=== PATIENT | female | born 1985 | race Caucasian/White ===

== ENCOUNTER → 2017-04-14 | Outpatient (CLI) | payer MEDICAID ==
[~2017-04-14] MED LIST: GADOBUTROL 10 ML VIAL IVP ONE
== END ==
LOC: FIMAGING 09:56
PROVIDERS: ATTEND Internal Medicine Endocrinology, Diabetes & Metabolism
DX: D35.2 Benign neoplasm of pituitary gland (principal)
CPT/HCPCS: A9585

== ENCOUNTER 2018-04-01 14:02 | Emergency (ER) | payer OTHER, MEDICAID ==
[2018-04-01] MEDS ORDERED: NS 1,000 ML IV ONE (14:21)
--- NOTE | 2018-04-01 14:29 | EDPHY ---
HPI/HX/ROS/PE/MDM Narrative: CHIEF COMPLAINT: Witnessed seizure, fall HISTORY OF PRESENT ILLNESS: The patient is a 33 y/o female arriving via EMS after a witnessed seizure and 15 foot slide down a mountain. She was hiking this afternoon when she began to feel "weird". She had experienced this sensation previously when she had what she believed as a seizure but was never medically investigated. Today, after the weird feeling, she reports being in and out of consciousness but realizing she was on the ground and moving her legs uncontrollably. She realized there were people around her but was not sure what was happening. A witness on the scene reports that she suddenly veered off the trail and started climbing onto a boulder with a strange look in her eyes. He reports she then slid and fell off the boulder, across the trail, and into a poison yanira plant. When he reached her, he reports she was seizing with cyanosis to the lips and uncontrollable movements. He reports she was post-ictal and called for EMS and helped her to a safe area. She initially reported neck pain but later clarified the pain was in the thoracic region. She denies any neck pain, headache, any other pain, numbness or tingling, nausea, vomiting, diarrhea , or any other associated symptoms. Patient denies alcohol use or illicit drug use. She denies a prior history of seizures with the exception of the event would mentioned above. She denies a family history of seizure disorder. She denies sleep deprivation or recent head injury or fever. No fever, chills, chest pain, shortness of breath, palpitations, vomiting, diarrhea, urinary complaints, headache, lightheadedness. REVIEW OF SYSTEMS: Aside from elements discussed in the HPI, a comprehensive 10-point review of systems was reviewed and is negative. PAST MEDICAL HISTORY: Denies SOCIAL HISTORY: Sister at bedside, lives in [place], [facility] VITAL SIGNS: Reviewed by me GENERAL: Well-developed, well-nourished, resting comfortably in no respiratory distress. Alert, not postictal. HEENT: Atraumatic. Eyes: No icterus, no injection. ANDREA, EOMI. No nystagmus. Mouth: moist mucous membranes. No erythema or lesions. Neck: In a cervical collar. No tenderness to palpation. LUNGS: Clear to auscultation bilaterally, no wheezes, rhonchi or rales. CARDIAC: Regular rate and rhythm, no rubs, murmurs or gallops. ABDOMEN: Soft, nontender, nondistended, bowel sounds normal. BACK: No CVA tenderness. Patient was rolled with no midline tenderness appreciated in the lumbar spine. No focal tenderness is appreciated on the thoracic spinal of the patient does report that it hurts rather diffusely across her mid thoracic spine. EXTREMITIES: Abrasion to left ankle and right medel. No edema. Range of motion is normal throughout. NEURO: Alert and oriented x3. Motor strength 5/5 in all major muscle groups. Sensation intact to light touch throughout. Cranial nerves 2-12 are intact. Patient is alert and oriented. She is not postictal. PSYCHIATRIC: Normal mentation, no agitation. ED Course: CT: CT of head and neck was obtained. I viewed the images myself on the PACS system. My interpretation of the images is: negative for acute findings. The radiologist interpretation is negative for acute findings. I discussed the x- ray findings with the patient. X-ray: Thoracic spine X-ray was obtained. I viewed the images myself on the PACS system. My interpretation of the images is: T-8 compression fracture. The radiologist interpretation is T-8 compression fracture. I discussed the x- ray findings with the patient. The patient presents with thoracic pain and several abrasions after a witnessed seizure and fall. She was hiking today when she developed a weird sensation and felt like she was going in and out of consciousness. A witness reports at this point she veered off the trail onto a boulder and then lost her balance and slid off the rock and across the trail into poison [place]. She was seizing when he reached her. He reports she was postictal for sometime while EMS was trying to reach them. Her current complaint is her thoracic back but she has no tenderness to palpation. She is concerned about cost of treatment and requests the minimum recommended studies. Plan for chest x-ray, thoracic spine x-ray, head and cervical spine CT, CBC, basic metabolic panel, and beta-hcg. 4:45 PM- Head and cervical spine CT are negative for acute findings. Thoracic x- ray shows a compression fracture at T8. Labs are not overly concerning. Dr. Ruffin, neurosurgery, will consult and Dr. Cruz, neurology, will consult. 5:30 PM- Dr. Cruz advises to start on 500 mg Keppra twice daily and have her followup with him. 5:40 PM - Dr. Ruffin evaluated the patient in the emergency department. He and the patient decided on a plan of care for pain control, no brace, and close follow-up in the office. Patient was discharged with her sister with precautions both for seizures as well as for her thoracic spine fracture. MDM: Differential diagnosis of this patient's traumatic injury was considered including but not limited to intracranial injury, long bone and pelvic bone fracture, spinal injury, intrathoracic injury, extremity injury, intra- abdominal injury, lacerations, abrasions, and contusions. Differential diagnosis of the patient's seizure was considered including but not limited to electrolyte abnormality, alcohol withdrawal, medication noncompliance, head injury, meningitis, encephalitis, and breakthrough seizure. - Data Points Imaging Results: Imaging Impressions Chest X-Ray 04/01/18 14:21 Impression: Chest negative for acute cardiopulmonary abnormality. Osseous structures are reported separately. Thoracic spine 3 views including swimmers view. Reason for examination: Pain following trauma. Findings: There is a compression fracture of T7 with approximately 50-60 % loss in cephalocaudal height. This is new since a DEXA scan February 2016. No other fracture is seen. The bone alignment is normal. Impression: T7 compression fracture with 50-60% loss in cephalocaudal height. This is new since 06/04/2016 study and may be acute. Head CT 04/01/18 14:21 Impression: Normal. CT cervical spine without contrast. History: Trauma. Pain. Seizure. Technique: 1.5 mm helical images were obtained the cervical spine without contrast. Multiplanar reformation was performed. Radiation dose reduction technique was utilized. Findings: No evidence for fracture or subluxation. Disk heights are maintained. No evidence for prevertebral soft tissue swelling. No significant neural foraminal or spinal canal encroachment. Impression: No evidence for cervical spine fracture. Results called and discussed with Jayla Quiroga MD at 04/01/2018 15:09. Cervical Spine CT 04/01/18 14:22 Impression: Normal. CT cervical spine without contrast. History: Trauma. Pain. Seizure. Technique: 1.5 mm helical images were obtained the cervical spine without contrast. Multiplanar reformation was performed. Radiation dose reduction technique was utilized. Findings: No evidence for fracture or subluxation. Disk heights are maintained. No evidence for prevertebral soft tissue swelling. No significant neural foraminal or spinal canal encroachment. Impression: No evidence for cervical spine fracture. Results called and discussed with Jayla Quiroga MD at 04/01/2018 15:09. Thoracic Spine X-Ray 04/01/18 14:23 Impression: Chest negative for acute cardiopulmonary abnormality. Osseous structures are reported separately. Thoracic spine 3 views including swimmers view. Reason for examination: Pain following trauma. Findings: There is a compression fracture of T7 with approximately 50-60 % loss in cephalocaudal height. This is new since a DEXA scan February 2016. No other fracture is seen. The bone alignment is normal. Impression: T7 compression fracture with 50-60% loss in cephalocaudal height. This is new since 06/04/2016 study and may be acute. Imaging: Discussed imaging studies w/ teacher physically impaired Radiologist, I viewed and interpreted images myself Laboratory Results: Laboratory Results 04/01/18 14:05 04/01/18 14:05 04/01/18 04/01/18 04/01/18 14:05 14:05 14:05 WBC 10.08 10^3/uL H 10^3/uL (3.80-9.50) RBC 4.72 10^6/uL 10^6/uL (4.18-5.33) Hgb 15.8 g/dL g/dL (12.6-16.3) Hct 43.5 % % (38.0-47.0) MCV 92.2 fL fL (81.5-99.8) MCH 33.5 pg pg (27.9-34.1) MCHC 36.3 g/dL g/dL (32.4-36.7) RDW 11.3 % L % (11.5-15.2) Plt Count 295 10^3/uL 10^3/uL (150-400) MPV 8.9 fL fL (8.7-11.7) Neut % (Auto) 81.3 % H % (39.3-74.2) Lymph % (Auto) 11.1 % L % (15.0-45.0) Pope % (Auto) 6.3 % % (4.5-13.0) Eos % (Auto) 0.3 % L % (0.6-7.6) Baso % (Auto) 0.2 % L % (0.3-1.7) Nucleat RBC Rel Count 0.0 % % (0.0-0.2) Absolute Neuts (auto) 8.20 10^3/uL H 10^3/uL (1.70-6.50) Absolute Lymphs (auto) 1.12 10^3/uL 10^3/uL (1.00-3.00) Absolute Monos (auto) 0.63 10^3/uL 10^3/uL (0.30-0.80) Absolute Eos (auto) 0.03 10^3/uL 10^3/uL (0.03-0.40) Absolute Basos (auto) 0.02 10^3/uL 10^3/uL (0.02-0.10) Absolute Nucleated RBC 0.00 10^3/uL 10^3/uL (0-0.01) Immature Gran % 0.8 % % (0.0-1.1) Immature Gran # 0.08 10^3/uL 10^3/uL (0.00-0.10) Sodium 141 mEq/L mEq/L (135-145) Potassium 3.8 mEq/L mEq/L (3.3-5.0) Chloride 106 mEq/L mEq/L (97-110) Carbon Dioxide 19 mEq/l L mEq/l (22-31) Anion Gap 16 mEq/L mEq/L (8-16) BUN 13 mg/dL mg/dL (7-23) Creatinine 1.0 mg/dL mg/dL (0.6-1.0) Estimated GFR > 60 Glucose 98 mg/dL mg/dL (70-100) Calcium 9.8 mg/dL mg/dL (8.5-10.4) Beta HCG, Qual NEGATIVE Medications Given: Discontinued Medications Fentanyl (Sublimaze) 50 mcg IVP EDNOW ONE Stop: 04/01/18 16:03 Last Admin: 04/01/18 16:09 Dose: 50 mcg Hydromorphone HCl (Dilaudid) 1 mg IVP EDNOW ONE Stop: 04/01/18 16:50 Last Admin: 04/01/18 16:53 Dose: 1 mg Sodium Chloride (Ns) 1,000 mls @ 0 mls/hr IV ONCE ONE; Wide Open PRN Reason: Protocol Stop: 04/01/18 14:22 Last Admin: 04/01/18 14:54 Dose: 1,000 mls Ketorolac Tromethamine (Toradol) 30 mg IVP EDNOW ONE Stop: 04/01/18 16:03 Last Admin: 04/01/18 16:08 Dose: 30 mg Levetiracetam (Keppra) 500 mg PO EDNOW ONE Stop: 04/01/18 17:28 Last Admin: 04/01/18 17:40 Dose: 500 mg Levetiracetam (Keppra) 500 mg PO EDNOW ONE Stop: 04/01/18 18:12 Last Admin: 04/01/18 18:13 Dose: 500 mg Levetiracetam (Keppra) 500 mg PO EDNOW ONE Stop: 04/01/18 18:12 Last Admin: 04/01/18 18:13 Dose: 500 mg Miscellaneous Medication (Icy Hot Lidocaine/Menthol 4%/1% Patch) 1 patch TD EDNOW ONE Stop: 04/01/18 18:02 Last Admin: 04/01/18 18:14 Dose: 1 patch Oxycodone/Acetaminophen (Percocet 5/325mg Prepack#4) 1 btl TAKEHOME EDNOW ONE Stop: 04/01/18 18:11 Last Admin: 04/01/18 18:14 Dose: 1 btl General Time Seen by Provider: 04/01/18 14:05 Initial Vital Signs: Initial Vital Signs Temperature (C) 36.8 C 04/01/18 14:07 Heart Rate 76 04/01/18 14:07 Respiratory Rate 16 04/01/18 14:07 Blood Pressure 126/72 H 04/01/18 14:07 O2 Sat (%) 100 04/01/18 14:07 O2 Delivery Mode Room Air Allergies/Adverse Reactions: No Known Allergies Allergy (Unverified 04/01/18 14:06) Home Medications: Medication Instructions Recorded Cabergoline 04/01/18 levETIRAcetam [Keppra 500 mg (*)] 500 mg PO BID #40 tab 04/01/18 oxyCODONE/APAP 5/325 [Percocet 1 tab PO QID PRN #14 tab 04/01/18 5/325 (*)] Departure - Departure Disposition: Home, Routine, Self-Care Clinical Impression: Seizure Thoracic compression fracture Qualifiers: Encounter type: initial encounter Fracture type: closed Qualified Code(s): S22.000A - Wedge compression fracture of unspecified thoracic vertebra, initial encounter for closed fracture Condition: Good Instructions: Thoracolumbar Fracture (ED), Thoracic Pain (ED), New-Onset Seizure in Adults (ED) Additional Instructions: 1. Take the Keppra as directed. 500 mg by mouth 2 times a day. 2. Please follow up with Dr. Cruz regarding her seizure. No driving until you are seen by Dr. Cruz. 3. Please follow up with Dr. Ruffin regarding the back fracture. 4. Please take ibuprofen 406 100 mg by mouth every 6-8 hours with food as needed for moderate pain. Lidocaine patch on the area pain may also be helpful. You have also been given a prescription for oxycodone. Please use this as needed for severe pain. Referrals: Patient,NotPresent [Unknown] - As per Instructions Jay Ruffin MD [Medical Doctor] - As per Instructions Cash Cruz MD [Medical Doctor] - As per Instructions Prescriptions: levETIRAcetam [Keppra 500 mg (*)] 500 mg PO BID #40 tab oxyCODONE/APAP 5/325 [Percocet 5/325 (*)] 1 tab PO QID PRN #14 tab PRN Reason: Pain Report Scribed for: Jayla Quiroga Report Scribed by: Diana Ramos Date of Report: 04/01/18 Time of Report: 17:16 Physician Review and Approval Statement: Portions of this note were transcribed by a medical device sales representative. I personally performed a history, physical exam, medical decision making, and confirmed accuracy of information the transcribed note.
[2018-04-01 14:39] LABS: PLATELET COUNT 295 10^3/uL (150-400)
[2018-04-01] MEDS ORDERED: KETOROLAC 30 MG/1 ML SDV IVP ONE (16:02)
[2018-04-01] MEDS ORDERED: fentaNYL 100 MCG/2 ML INJ IVP ONE (16:02)
[2018-04-01] MEDS ORDERED: HYDROmorphONE/DILAUDID 1 MG/ML INJ IVP ONE (16:49)
[2018-04-01] MEDS ORDERED: levETIRAcetam 500 MG TAB PO ONE ×3 (17:27→18:11)
[2018-04-01] MEDS ORDERED: LIDOCAINE 4%/MENTHOL 1% PATCH TD ONE (18:01)
[2018-04-01] MEDS ORDERED: OXYCODONE/APAP 5/325MG PREPACK#4 BTL TAKEHOME ONE ×2 (18:10→18:11)
[2018-04-01] MEDS ORDERED: levETIRAcetam 500 MG TAB ONE (18:11)
[2018-04-01 18:18] VITALS: BP 122/72
--- NOTE | 2018-04-01 20:20 | GCON ---
[f rep st] CONSULTATION DATE OF CONSULTATION: 04/01/2018 CONSULTING SERVICE: Dr. Jayla Quiroga EMERGENCY MEDICINE CONSULT: Jay Ruffin MD, Neurosurgery REASON FOR CONSULT: Seizure with a fall while hiking, with a T6 compression fracture. HISTORY OF PRESENT ILLNESS: The patient is a 33-year-old female who arrived by EMS today after a wit nessed seizure and a 15 foot slide down a mountain. She was hiking alone this afternoon when she beg an to feel weird. She has experienced this situation before, which she believes was a seizure but wa s never medically investigated. She is now back at her baseline, with her sister in the room. Plain films were done of the thoracic spine due to back pain, and she was found to have a T6 compression f racture, although Radiology called it as T7. But, upon counting ribs, it appears to be T6. She does not have any neurologic symptoms otherwise. PAST MEDICAL AND SURGICAL HISTORY: Negative. CODE STATUS: Full. ALLERGIES: No known drug allergies. SOCIAL HISTORY: Sister at bedside. Lives in [place]. She is employed. She denies significant alco hol, tobacco, or drug abuse. FAMILY HISTORY: Noncontributory. No seizures in her family. REVIEW OF SYSTEMS: Ten points reviewed and negative unless otherwise stated in the HPI. PHYSICAL EXAM: VITAL SIGNS: Blood pressure 122/72, heart rate 76, afebrile at 36.8, respiratory rat e 16, saturating 100% on room air. NEUROLOGIC: Awake, alert, and oriented x3. Appears stated age, in no acute distress. Normal fluent speech. Normal cranial nerves. 5/5 upper and lower extremities . No pronator drift. Normal sensory exam to light touch and pinprick. No Mahajan's, clonus, or Bab inski's. Normal reflex exam. No cerebellar findings. Gait is deferred. LABS: White blood cells 10, hemoglobin 15.8, platelets 295. Sodium 141, potassium 3.8, BUN 13, crea tinine 1, glucose 98. test negative. IMAGING: I reviewed the patient's plain films of the thoracic spine and I think she has a T6 perry azar fracture, despite a T7 compression fracture that was called by Radiology. Counting ribs, I dete rmine the level as T6. The compression fracture is approximately 60%. There might be a small amount of retropulsion into the spinal canal. IMPRESSION AND PLAN: A 33-year-old female, otherwise healthy, may have had a seizure once before her lifetime but has not been medically diagnosed. The patient had a "witnessed" seizure today, althoug h the diagnosis may not be solid either. Regardless, she presents to the emergency room today, and i s back at her baseline with some mild back pain and a T6 compression fracture to my count on her x-ra ys. She has a normal neurologic exam. I am okay with her being discharged as her pain is adequately controlled. She can be discharged on pain medications. I have given her my office number should sh e require extra treatment such as bracing. She should see a neurologist as an outpatient to work up these events. I would like to see her back in 4 weeks with more x-rays to determine that her fractur e is healing as it should. Okay for discharge from my standpoint. Her sister is at bedside. I saw the patient in the ED approximately 30 minutes after being called. /[id number]/MODL
[2018-04-01] MEDS ORDERED: PATCH REMOVAL 1 EA PATCH TD SCH (21:00)
== END 2018-04-01 18:19 | disposition home or self-care (01) ==
LOC: EDUNIT#
DX: S22.000A Wedge compression fracture of unspecified thoracic vertebra, initial encounter for closed fracture (principal); R56.9 Unspecified convulsions; E86.9 Volume depletion, unspecified; W01.0XXA Fall on same level from slipping, tripping and stumbling without subsequent striking against object, initial encounter; Y92.89 Other specified places as the place of occurrence of the external cause; Y99.8 Other external cause status; Y93.01 Activity, walking, marching and hiking
CPT/HCPCS: 96374; J1170; J1885; J3010

== ENCOUNTER → 2018-04-20 | Outpatient (CLI) | payer MEDICAID, OTHER | LOC: FIMAGING 10:18 | PROVIDERS: ATTEND Internal Medicine Endocrinology, Diabetes & Metabolism | DX: Z13.820 Encounter for screening for osteoporosis (principal); G40.909 Epilepsy, unspecified, not intractable, without status epilepticus ==